=== PATIENT | male | born 1965 | race Caucasian/White ===

== ENCOUNTER → 2017-08-07 | Outpatient (CLI) | payer OTHER ==
[~2017-08-07] VITALS: Ht 170.2 cm; Wt 85.7 kg
[~2017-08-07] MED LIST: DAILY MULTIPLE1 EACH PO; DIOVAN HCT 11 TABLET PO; LIPITOR20 MG PO; NEXIUM40 MG PO
== END | disposition home or self-care (01) ==
LOC: AMB 08:25
DX: Z12.11 Encounter for screening for malignant neoplasm of colon (principal); K21.9 Gastro-esophageal reflux disease without esophagitis; K20.0 Eosinophilic esophagitis; D12.0 Benign neoplasm of cecum; K22.2 Esophageal obstruction; K62.89 Other specified diseases of anus and rectum
CPT/HCPCS: 88305; 93005